=== PATIENT | female | born 1965 | race African-American/Black ===

== ENCOUNTER 2019-01-07 09:10 | Inpatient (IN) | payer BC, OTHER ==
[2019-01-07] MEDS ORDERED: NORMAL SALINE 1000 ML 1,000 ML IV ONE (09:17)
[2019-01-07] MEDS ORDERED: ONDANSETRON HCL INJ/PF 4 MG/2 ML SDV IV ONE (09:17)
--- NOTE | 2019-01-07 09:19 | ER Document Report ---
ED Medical Screen (RME) - General Chief Complaint: Abdominal Pain Stated Complaint: ABDOMINAL PAIN Time Seen by Provider: 01/07/19 09:13 Primary Care Provider: CHRIST WRIGHT [Primary Care Provider] - Follow up as needed Mode of Arrival: Wheelchair Information source: Patient Notes: Patient presents complaining of abdominal pain that woke her up at 1:00 this morning to the left side and epigastric area. Patient reports nausea and vomiting, vomiting about 10 times this morning. Patient states pain does radiate to the left side. Patient denies any fever. hx: Tubal ligation I have greeted and performed a rapid initial assessment of this patient. A comprehensive ED assessment and evaluation of the patient, analysis of test results and completion of the medical decision making process will be conducted by additional ED providers. - Related Data Allergies/Adverse Reactions: No Known Allergies Allergy (Verified 01/07/19 09:15) Physical Exam - Vital signs Vitals: Temp Pulse BP Pulse Ox 98.1 F 66 112/68 100 01/07/19 09:14 01/07/19 09:14 01/07/19 09:14 01/07/19 09:14 - Abdominal Tenderness: Tender - Epigastric, left upper quadrant Notes: Patient actively vomiting in triage Course - Vital Signs Vital signs: Temp Pulse Resp BP Pulse Ox 98.1 F 66 112/68 100 01/07/19 09:14 01/07/19 09:14 01/07/19 09:14 01/07/19 09:14 Doctor's Discharge - Discharge Referrals: CHRIST WRIGHT [Primary Care Provider] - Follow up as needed
[2019-01-07] MEDS ORDERED: FAMOTIDINE INJ/PF 20 MG/2 ML SDV IV ONE (09:36)
[2019-01-07 09:42] LABS: ABSOLUTE BASOPHILS # (AUTO) 0.1 10^3/uL (0.0-0.2); ABSOLUTE MONOCYTES (AUTO) 0.6 10^3/uL (0.1-1.4); ABSOLUTE NEUT (AUTO) 12.3 10^3/uL (1.7-8.2); BASOPHILS % (AUTO) 0.5 % (0-2); HEMATOCRIT 41.9 % (36.0-47.0); HEMOGLOBIN 14.4 g/dL (12.0-15.5); LYMPHOCYTES % (AUTO) 7.2 % (13-45); MEAN CORPUSCULAR HEMOGLOBIN 29.8 pg (27.0-33.4); MEAN CORPUSCULAR HGB CONC 34.3 g/dL (32.0-36.0); MEAN CORPUSCULAR VOLUME 87 fl (80-97); MONOCYTES % (AUTO) 4.4 % (3-13); PLATELET COUNT 175 10^3/uL (150-450); RED BLOOD COUNT 4.82 10^6/uL (3.72-5.28); RED CELL DISTRIBUTION WIDTH 12.2 % (11.5-14.0); SEGMENTED NEUTROPHILS % (AUTO) 87.9 % (42-78); TOTAL CELLS COUNTED % (AUTO) 100 %; WHITE BLOOD COUNT 13.9 10^3/uL (4.0-10.5)
[2019-01-07] MEDS ORDERED: MORPHINE SULFATE 10 MG/ML INJ IV ONE (09:50)
--- NOTE | 2019-01-07 09:52 | ER Document Report ---
ED General - General Chief Complaint: Abdominal Pain Stated Complaint: ABDOMINAL PAIN Time Seen by Provider: 01/07/19 09:13 Primary Care Provider: CHRIST WRIGHT [Primary Care Provider] - Follow up as needed Mode of Arrival: Wheelchair - HPI Notes: Patient is a 53-year-old female that presents to the emergency department for chief complaint of abdominal pain. Patient states she was woken from sleep this morning with acute onset of epigastric and left upper quadrant abdominal pain. She describes it as sharp and constant. She has had continuous nausea with multiple episodes of nonbloody nonbilious emesis. Patient denies any fever chills diarrhea or constipation issues. She denies history of abdominal surgeries in the past. She states she has never had abdominal pain similar to this before. She denies any relieving factors to her pain and has not taken any [id number] medications. Her pain is worse with palpation and movement. Past Medical History: Reviewed in chart Past Surgical History: Reviewed in chart Social History: Reviewed in chart Family History: Reviewed and noncontributory for presenting illness Allergies: Reviewed, see documented allergy list. REVIEW OF SYSTEMS: CONSTITUTIONAL : No fever No chills No diaphoresis No recent illness EENT: No vision changes No congestion No sore throat CARDIOVASCULAR: No chest pain No palpitations RESPIRATORY: No shortness of breath No cough No difficulty breathing GASTROINTESTINAL: abdominal pain nausea vomiting No diarrhea GENITOURINARY: No dysuria No hematuria No difficulty urinating MUSCULOSKELETAL: No back pain No leg pain No arm pain SKIN: No rashes No lesions LYMPHATIC: No swollen, enlarged glands. NEUROLOGICAL: No lightheadedness No headache No weakness No paresthesias PSYCHIATRIC: No anxiety No depression PHYSICAL EXAMINATION: Vital signs reviewed, nursing noted reviewed. GENERAL: Appears to be in pain, well-nourished and in no acute distress. HEAD: Atraumatic, normocephalic. EYES: Eyes appear normal, extraocular movements intact, sclera anicteric, conjunctiva are normal. ENT: nares patent, oropharynx clear without exudates. Moist mucous membranes. NECK: Normal range of motion, supple without lymphadenopathy LUNGS: Breath sounds clear to auscultation bilaterally and equal. No wheezes rales or rhonchi. HEART: Regular rate and rhythm without murmurs ABDOMEN: Soft, epigastric and left upper quadrant tenderness, negative Viera sign, no McBurney's point tenderness, normoactive bowel sounds. No rebound, guarding, or rigidity. No masses appreciated. EXTREMITIES: Nontender, good range of motion, no pitting or edema. NEUROLOGICAL: No focal neurological deficits. Moves all extremities spontaneously Motor and sensory grossly intact on exam. PSYCH: Normal mood, normal affect. SKIN: Warm, Dry, normal turgor, no rashes or lesions noted on exposed skin - Related Data Allergies/Adverse Reactions: No Known Allergies Allergy (Verified 01/07/19 09:15) Past Medical History - General Information source: Patient - Social History Smoking Status: Never Smoker Family History: Reviewed & Not Pertinent Patient has suicidal ideation: No Patient has homicidal ideation: No Physical Exam - Vital signs Vitals: Temp Pulse BP Pulse Ox 98.1 F 66 112/68 100 01/07/19 09:14 01/07/19 09:14 01/07/19 09:14 01/07/19 09:14 Course - Re-evaluation Re-evalutation: 01/07/19 11:31 Vitals reviewed. Nursing notes reviewed. Patient given IV fluids, Zofran, Pepcid and morphine for symptomatic management. She does have significant tenderness on exam and CT scan shows a wandering spleen with likely splenic torsion. This finding was discussed with Dr. Louis who will see her on consult and admit for likely splenectomy. The remainder of her blood work is unremarkable. Patient states her pain has improved since receiving the morphine and currently is tolerable. She was made n.p.o. Patient given a dose of Unasyn in the ED per Dr. Louis's request. Laboratory 01/07/19 01/07/19 01/07/19 09:20 09:20 09:20 WBC 13.9 H RBC 4.82 Hgb 14.4 Hct 41.9 MCV 87 MCH 29.8 MCHC 34.3 RDW 12.2 Plt Count 175 Lymph % (Auto) 7.2 L [place] % (Auto) 4.4 Eos % (Auto) 0.0 Baso % (Auto) 0.5 Absolute Neuts (auto) 12.3 H Absolute Lymphs (auto) 1.0 Absolute Monos (auto) 0.6 Absolute Eos (auto) 0.0 Absolute Basos (auto) 0.1 Seg Neutrophils % 87.9 H Sodium 138.7 Potassium 4.5 Chloride 99 Carbon Dioxide 31 H Anion Gap 9 BUN 8 Creatinine 0.82 Est GFR ( Amer) > 60 Est GFR (MDRD) Non-Af > 60 Glucose 198 H Calcium 9.7 Total Bilirubin 0.4 Direct Bilirubin 0.1 Neonat Total Bilirubin Not Reportable Neonat Direct Bilirubin Not Reportable Neonat Indirect Bili Not Reportable AST 27 ALT 27 Alkaline Phosphatase 88 Total Protein 7.8 Albumin 4.5 Lipase 76.2 Serum HCG, Qual NEGATIVE Urine Color Urine Appearance Urine pH Ur Specific [place] Urine Protein Urine Glucose (UA) Urine Ketones Urine Blood Urine Nitrite Urine Bilirubin Urine Urobilinogen Ur Leukocyte Esterase Urine WBC (Auto) Urine RBC (Auto) Squamous Epi Cells Auto Urine Mucus (Auto) Urine Ascorbic Acid 01/07/19 10:00 WBC RBC Hgb Hct MCV MCH MCHC RDW Plt Count Lymph % (Auto) [place] % (Auto) Eos % (Auto) Baso % (Auto) Absolute Neuts (auto) Absolute Lymphs (auto) Absolute Monos (auto) Absolute Eos (auto) Absolute Basos (auto) Seg Neutrophils % Sodium Potassium Chloride Carbon Dioxide Anion Gap BUN Creatinine Est GFR ( Amer) Est GFR (MDRD) Non-Af Glucose Calcium Total Bilirubin Direct Bilirubin Neonat Total Bilirubin Neonat Direct Bilirubin Neonat Indirect Bili AST ALT Alkaline Phosphatase Total Protein Albumin Lipase Serum HCG, Qual Urine Color YELLOW Urine Appearance CLEAR Urine pH 7.0 Ur Specific [place] 1.023 Urine Protein NEGATIVE Urine Glucose (UA) 150 H Urine Ketones TRACE H Urine Blood NEGATIVE Urine Nitrite NEGATIVE Urine Bilirubin NEGATIVE Urine Urobilinogen NEGATIVE Ur Leukocyte Esterase NEGATIVE Urine WBC (Auto) 2 Urine RBC (Auto) 2 Squamous Epi Cells Auto 1 Urine Mucus (Auto) RARE Urine Ascorbic Acid 20 H Abdomen/Pelvis CT 01/07/19 10:00 IMPRESSION: 1. The spleen is inferiorly displaced from the left upper quadrant with a swirl sign of the splenic vessels and fat stranding of the splenic hilum (series 601, image 33, series 3, image 34). Findings are consistent with a "wandering spleen" and the presence of swirling vessels and fat stranding are concerning for splenic torsion in the setting of acute abdominal pain. This is a very uncommon although reported complication of wandering spleen and cause of acute abdominal pain. The spleen is normal in size. 2. Small volume nonspecific free fluid in the low abdomen and pelvis. 01/07/19 12:57 She will be taken from the emergency room to the OR for splenectomy - Vital Signs Vital signs: Temp Pulse Resp BP Pulse Ox 98.1 F 66 112/68 100 01/07/19 09:14 01/07/19 09:14 01/07/19 09:14 01/07/19 09:14 - Laboratory Result Diagrams: 01/07/19 09:20 01/07/19 09:20 Laboratory results interpreted by me: 01/07/19 01/07/19 01/07/19 09:20 09:20 10:00 WBC 13.9 H Lymph % (Auto) 7.2 L Absolute Neuts (auto) 12.3 H Seg Neutrophils % 87.9 H Carbon Dioxide 31 H Glucose 198 H Urine Glucose (UA) 150 H Urine Ketones TRACE H Urine Ascorbic Acid 20 H - Diagnostic Test Radiology reviewed: Image reviewed, Reports reviewed Critical Care Note - Critical Care Note Total time excluding time spent on procedures (mins): 35 Comments: Critical care time 35 exclusive from separate billable procedures for a patient requiring complex medical decision making, and high potential for clinical deterioration. Time spent obtaining history from patient or surrogate, discussions with consultants, development of treatment plan with patient or surrogate, evaluation of patient's response to treatment, examination of patient, ordering and performing treatments and interventions, ordering and review of laboratory studies, re-evaluation of patient's condition, ordering and review of radiographic studies and review of old charts Discharge - Discharge Clinical Impression: Splenic torsion, Abdominal pain, LUQ Condition: Stable Disposition: ADMITTED INPATIENT Admitting Provider: Surgicalist Unit Admitted: OR Referrals: LOCALMD,NO [Primary Care Provider] - Follow up as needed
[2019-01-07 10:04] LABS: ALBUMIN 4.5 g/dL (3.5-5.0); ALKALINE PHOSPHATASE 88 U/L (38-126); ANION GAP 9 (5-19); ASPARTATE AMINO TRANSFERASE 27 U/L (14-36); BILIRUBIN,DIRECT 0.1 mg/dL (0.0-0.4); BILIRUBIN,TOTAL 0.4 mg/dL (0.2-1.3); BLOOD UREA NITROGEN 8 mg/dL (7-20); CALCIUM 9.7 mg/dL (8.4-10.2); CARBON DIOXIDE 31 mmol/L (22-30); CHLORIDE 99 mmol/L (98-107); GLUCOSE 198 mg/dL (75-110); POTASSIUM 4.5 mmol/L (3.6-5.0); TOTAL PROTEIN 7.8 g/dL (6.3-8.2)
[2019-01-07 10:19] LABS: APPEARANCE,URINE CLEAR; BILIRUBIN,URINE NEGATIVE (NEGATIVE); COLOR,URINE YELLOW; GLUCOSE, URINE 150 mg/dL (NEGATIVE); KETONES,URINE TRACE mg/dL (NEGATIVE); LEUKOCYTE ESTERASE,URINE NEGATIVE (NEGATIVE); NITRITE,URINE NEGATIVE (NEGATIVE); PROTEIN,URINE NEGATIVE (NEGATIVE); URINE SPECIFIC GRAVITY 1.023; UROBILINOGEN,URINE NEGATIVE mg/dL (<2.0)
[2019-01-07] MEDS ORDERED: NEOSTIGMINE METHYLSULFATE 10 MG/10 ML VIAL ONE (10:55)
[2019-01-07] MEDS ORDERED: LIDOCAINE 2% INJ-PF (20 MG/ML) 2 ML AMPUL ONE (10:55)
[2019-01-07] MEDS ORDERED: GLYCOPYRROLATE 1 MG/5 ML VIAL ONE (10:55)
[2019-01-07] MEDS ORDERED: ROCURONIUM BROMIDE INJ 50 MG/5 ML VIAL IV ONE (10:55)
[2019-01-07] MEDS ORDERED: METOCLOPRAMIDE HCL INJ/PF 10 MG/2 ML SDV ONE (10:55)
--- NOTE | 2019-01-07 11:12 | RADIOLOGY REPORT (SQ) ---
EXAM DESCRIPTION: CT ABD/PELVIS WITH IV ONLY COMPLETED DATE/TIME: 01/07/2019 10:54 am REASON FOR STUDY: abdominal pain COMPARISON: None. TECHNIQUE: CT scan of the abdomen and pelvis performed using helical scanning technique with dynamic intravenous contrast injection. No oral contrast. Images reviewed with lung, soft tissue, and bone windows. Reconstructed coronal and sagittal MPR images reviewed. Delayed images for evaluation of the urinary system also acquired. All images stored on PACS. All CT scanners at this facility use dose modulation, iterative reconstruction, and/or weight based d osing when appropriate to reduce radiation dose to as low as reasonably achievable (ALARA). [facility]: Dose Right [facility]: CareDose [facility]: Dose Right [facility]: Teradose 4D [facility]: [employer] CONTRAST TYPE AND DOSE: contrast/concentration: Isovue 350.00 mg/ml; Total Contrast Delivered: 85.0 ml; Total Saline Delivered: 65.0 ml RENAL FUNCTION: GFR > 60. RADIATION DOSE: CT Rad equipment meets quality standard of care and radiation dose reduction techniq ues were employed. CTDIvol: NaN - NaN mGy. DLP: 0 mGy-cm.. LIMITATIONS: None. FINDINGS: LOWER CHEST: No significant findings. No nodules or infiltrates. LIVER: Normal size. No masses. No dilated ducts. SPLEEN: The spleen is inferiorly displaced from the left upper quadrant with a swirl sign of the sple alice vessels and fat stranding of the splenic hilum (series 601, image 33, series 3, image 34). The s pleen is normal in size. PANCREAS: No masses. No significant calcifications. No adjacent inflammation or peripancreatic fluid collections. Pancreatic duct not dilated. GALLBLADDER: No identified stones by CT criteria. No inflammatory changes to suggest cholecystitis. ADRENAL GLANDS: No significant masses or asymmetry. RIGHT KIDNEY AND URETER: No solid masses. No significant calcifications. No hydronephrosis or hyd roureter. LEFT KIDNEY AND URETER: No solid masses. No significant calcifications. No hydronephrosis or hydr oureter. AORTA AND VESSELS: No aneurysm. No dissection. Renal arteries, SMA, celiac without stenosis. RETROPERITONEUM: No retroperitoneal adenopathy, hemorrhage or masses. BOWEL AND PERITONEAL CAVITY: No masses or inflammatory changes. Small volume free fluid in the low a bdomen and pelvis. APPENDIX: Not clearly visualized. PELVIS: No mass. Small volume free fluid in the low pelvis. Normal bladder. ABDOMINAL WALL: No masses. No hernias. BONES: No significant or acute findings. OTHER: No other significant finding. IMPRESSION: 1. The spleen is inferiorly displaced from the left upper quadrant with a swirl sign of the splenic vessels and fat stranding of the splenic hilum (series 601, image 33, series 3, image 34) . Findings are consistent with a "wandering spleen" and the presence of swirling vessels and fat st randing are concerning for splenic torsion in the setting of acute abdominal pain. This is a very un common although reported complication of wandering spleen and cause of acute abdominal pain. The spl een is normal in size. 2. Small volume nonspecific free fluid in the low abdomen and pelvis. TECHNICAL DOCUMENTATION: JOB ID: [id number] Quality ID # [id number]: Final reports with documentation of one or more dose reduction techniques (e.g., Au tomated exposure control, adjustment of the mA and/or kV according to patient size, use of iterative reconstruction technique) 2010 [employer]- All Rights Reserved Reading location - IP/workstation name: [email or web address]
[2019-01-07] MEDS ORDERED: AMPICILLIN SOD/SULBACTAM 3 GM VIAL IV ONE (11:25)
[2019-01-07] MEDS ORDERED: FENTANYL CITRATE INJ/PF 100 MCG/2 ML AMPUL ONE (13:30)
[2019-01-07] MEDS ORDERED: HYDROMORPHONE HCL INJ/PF 2 MG/ML AMPULE ONE (13:31)
[2019-01-07] MEDS ORDERED: EPHEDRINE SULFATE INJ 50 MG/1 ML AMPULE ONE (13:31)
[2019-01-07] MEDS ORDERED: PROPOFOL INJ 200 MG/20 ML VIAL IV ONE (13:31)
[2019-01-07] MEDS ORDERED: MIDAZOLAM 2 MG/2 ML INJ ONE (13:31)
--- NOTE | 2019-01-07 14:02 | PDOC H&P ---
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 Went to Ed where a CT scan of abdomen showed torsion of spleen.Denies fever or chills. Past Medical History Medical History: None Past Surgical History Past Surgical History: Reports: None Social History Smoking Status: Never Smoker Family History Family History: Reviewed & Not Pertinent Parental Family History Reviewed: Yes - mother diabetic Children Family History Reviewed: No Sibling(s) Family History Reviewed.: No Medication/Allergy Home Medications: Multivitamin [Multiple Vitamins] 1 tab PO DAILY 01/07/19 Allergies/Adverse Reactions: No Known Allergies Allergy (Verified 01/07/19 09:15) Review of Systems Constitutional: PRESENT: as per HPI Gastrointestinal: PRESENT: abdominal pain, nausea Physical Exam Vital Signs: Temp Pulse Resp BP Pulse Ox 98.1 F 66 112/68 100 01/07/19 09:14 01/07/19 09:14 01/07/19 09:14 01/07/19 09:14 Intake & Output 01/06/19 01/07/19 01/08/19 06:59 06:59 06:59 Intake Total 1000 Balance 1000 Weight 74.3 kg General appearance: PRESENT: severe distress Head exam: PRESENT: atraumatic Eye exam: PRESENT: conjunctiva pink Mouth exam: PRESENT: moist Neck exam: PRESENT: full ROM Respiratory exam: PRESENT: clear to auscultation yvonne Cardiovascular exam: PRESENT: RRR Pulses: PRESENT: normal radial pulses Vascular exam: PRESENT: normal capillary refill GI/Abdominal exam: PRESENT: soft, tenderness - LUQ worse at left para umbilical area Rectal exam: PRESENT: deferred Extremities exam: PRESENT: full ROM Musculoskeletal exam: PRESENT: full ROM Neurological exam: PRESENT: alert, oriented to person, oriented to place, oriented to time, oriented to situation Psychiatric exam: PRESENT: appropriate affect Skin exam: PRESENT: normal color, warm Results Laboratory Results: 01/07/19 09:20 01/07/19 09:20 01/07/19 01/07/19 01/07/19 09:20 09:20 09:20 WBC 13.9 H RBC 4.82 Hgb 14.4 Hct 41.9 MCV 87 MCH 29.8 MCHC 34.3 RDW 12.2 Plt Count 175 Seg Neutrophils % 87.9 H Sodium 138.7 Potassium 4.5 Chloride 99 Carbon Dioxide 31 H Anion Gap 9 BUN 8 Creatinine 0.82 Est GFR ( Amer) > 60 Glucose 198 H Calcium 9.7 Total Bilirubin 0.4 AST 27 Alkaline Phosphatase 88 Total Protein 7.8 Albumin 4.5 Lipase 76.2 Serum HCG, Qual NEGATIVE Urine Color Urine Appearance Urine pH Ur Specific [place] Urine Protein Urine Glucose (UA) Urine Ketones Urine Blood Urine Nitrite Ur Leukocyte Esterase Urine WBC (Auto) Urine RBC (Auto) Blood Type Antibody Screen 01/07/19 01/07/19 10:00 11:52 WBC RBC Hgb Hct MCV MCH MCHC RDW Plt Count Seg Neutrophils % Sodium Potassium Chloride Carbon Dioxide Anion Gap BUN Creatinine Est GFR ( Amer) Glucose Calcium Total Bilirubin AST Alkaline Phosphatase Total Protein Albumin Lipase Serum HCG, Qual Urine Color YELLOW Urine Appearance CLEAR Urine pH 7.0 Ur Specific [place] 1.023 Urine Protein NEGATIVE Urine Glucose (UA) 150 H Urine Ketones TRACE H Urine Blood NEGATIVE Urine Nitrite NEGATIVE Ur Leukocyte Esterase NEGATIVE Urine WBC (Auto) 2 Urine RBC (Auto) 2 Blood Type B POSITIVE Antibody Screen NEGATIVE Impressions: Abdomen/Pelvis CT 01/07/19 10:00 IMPRESSION: 1. The spleen is inferiorly displaced from the left upper quadrant with a swirl sign of the splenic vessels and fat stranding of the splenic hilum (series 601, image 33, series 3, image 34). Findings are consistent with a "wandering spleen" and the presence of swirling vessels and fat stranding are concerning for splenic torsion in the setting of acute abdominal pain. This is a very uncommon although reported complication of wandering spleen and cause of acute abdominal pain. The spleen is normal in size. 2. Small volume nonspecific free fluid in the low abdomen and pelvis. Assessment & Plan - Diagnosis (1) Abdominal pain, LUQ Is this a current diagnosis for this admission?: Yes (2) Splenic torsion Is this a current diagnosis for this admission?: Yes - Time Time Spent: 30 to 50 Minutes - Inpatient Certification Medical Necessity: Need for IV Antibiotics, Need for Surgery - Plan Summary Plan Summary: For exploratory,splenectomy
[2019-01-07 14:11] LABS: INTERNATIONAL RATION (INR) 1.06; PROTHROMBIN TIME 13.8 SEC (11.4-15.4)
[2019-01-07] MEDS ORDERED: DIPHENHYDRAMINE HCL 50 MG/ML VIAL IV PRN (15:22)
[2019-01-07] MEDS ORDERED: ONDANSETRON HCL INJ/PF 4 MG/2 ML SDV IV PRN (15:22)
[2019-01-07] MEDS ORDERED: MEPERIDINE HCL/PF INJ 25 MG/1 ML DISP.SYRIN IV PRN (15:22)
[2019-01-07] MEDS ORDERED: MORPHINE SULFATE 10 MG/ML INJ IV PRN ×2 (15:22→18:53)
[2019-01-07] MEDS ORDERED: PROMETHAZINE HCL INJ 25 MG/1 ML VIAL IV PRN ×2 (15:22)
[2019-01-07] MEDS ORDERED: OXYCODONE-ACETAMINOPHEN 5-325 MG TABLET PO PRN ×2 (15:22)
[2019-01-07] MEDS ORDERED: FENTANYL CITRATE INJ/PF 100 MCG/2 ML AMPUL IV PRN ×3 (15:22)
[2019-01-07] MEDS ORDERED: BUPIVACAINE INJ/PF LIPOSOME/PF 266 MG/20 ML SDV ONE (15:26)
--- NOTE | 2019-01-07 16:25 | Operative Report ---
Operative Report DATE OF SURGERY: 01/07/19 PREOPERATIVE DIAGNOSIS: Torsion of the spleen POSTOPERATIVE DIAGNOSIS: Same OPERATION: Splenectomy SURGEON: TONG MCINTOSH ANESTHESIA: GA TISSUE REMOVED OR ALTERED: Spleen COMPLICATIONS: None ESTIMATED BLOOD LOSS: 20 cc QUANTITATIVE BLOOD LOSS: 20 INTRAOPERATIVE FINDINGS: Spleen appears to be its normal size but is markedly discolored and firm. No adhesions to its usual sites. Spleen appears to be twisted several times on its long pedicle occluding it is arterial and venous systems PROCEDURE: After adequate general anesthesia patient was placed in supine position and the abdomen prepped and draped in the usual sterile fashion. Appropriate timeout was called. Next a left subcostal incision is made in the fascia divided with the use of cautery. Abdominal cavity was then entered. The spleen was noted to be upside down with the pedicle close to the incision. The spleen was subsequently lifted up into the incision site. The spleen and usually does not have any adhesions to its usual borders and it appears to be free-floating. It appears to be twisted several times on its long pedicle with occlusion of the arterial and venous systems. The spleen was untwisted and arterial and venous systems isolated and each side doubly ligated with 0 Vicryl ties. The pedicle close to the hilum distal to the ligated vessels was subsequently divided with the use of LigaSure. No evidence of bleeding noted. There appears to be some clots on the venous side. The spleen was subsequently passed on from the OR table to be sent for pathology. No obvious abnormality noted along the surrounding structures with the colon noted to be free of any adhesions and noted to be normal. The left the posterior and anterior fascia was then reapproximated separately with running suture using 0 PDS. The incision which was carried to the midline and the midline was then closed with 2 figure of 8 sutures using 0 PDS. Exparel local anesthesia was injected through the fascia and to the surrounding incision site using about 20cc. The skin was then reapproximated using verito. Sterile dressings placed over the operative site. Needle instrument sponge count were all correct and estimated blood loss was about 15 to 20 cc. Patient brought to the recovery room in satisfactory condition extubated.
[2019-01-07] MEDS: AMPICILLIN SODIUM/SULBACTAM NA 3 GM in NORMAL SALINE 100 ML IV SCH (21:39)
[2019-01-07] MEDS: KETOROLAC TROMETHAMINE INJ/PF 30 MG/1 ML SDV IV SCH (23:25)
[2019-01-08] MEDS: DEXTROSE 5%-LACTATED RINGERS 1,000 ML IV PRN ×3 (02:44→23:09)
[2019-01-08] MEDS: AMPICILLIN SODIUM/SULBACTAM NA 3 GM in NORMAL SALINE 100 ML IV SCH ×4 (02:44→20:27)
[2019-01-08 06:26] LABS: HEMATOCRIT 38.3 % (36.0-47.0); MEAN CORPUSCULAR HEMOGLOBIN 29.6 pg (27.0-33.4); MEAN CORPUSCULAR HGB CONC 33.9 g/dL (32.0-36.0); MEAN CORPUSCULAR VOLUME 87 fl (80-97); PLATELET COUNT 169 10^3/uL (150-450); RED BLOOD COUNT 4.39 10^6/uL (3.72-5.28); RED CELL DISTRIBUTION WIDTH 12.6 % (11.5-14.0); WHITE BLOOD COUNT 20.4 10^3/uL (4.0-10.5)
[2019-01-08] MEDS: ENOXAPARIN SODIUM INJ 30 MG/0.3 ML DISP.SYRIN SUBCUT SCH (06:31)
[2019-01-08] MEDS: KETOROLAC TROMETHAMINE INJ/PF 30 MG/1 ML SDV IV SCH ×3 (06:33→17:17)
[2019-01-08 07:04] LABS: ABSOLUTE MONOCYTES # (MANUAL) 1.8 10^3/uL (0.1-1.4); BAND NEUTROPHILS % (MANUAL) 1 % (3-5); BASOPHILS % (MANUAL) 0 % (0-2); EOSINOPHILS % (MANUAL) 0 % (0-6); LYMPHOCYTES % (MANUAL) 9 % (13-45); MONOCYTES % (MANUAL) 9 % (3-13); SEGMENTED NEUTROPHILS % (MAN) 80 % (42-78); TOTAL CELLS COUNTED 100
[2019-01-08 07:05] LABS: PLATELET COMMENT ADEQUATE; RBC MORPHOLOGY COMMENT NORMO-CYTIC/CHROMIC
[2019-01-08 07:34] LABS: ALBUMIN 3.5 g/dL (3.5-5.0); ALKALINE PHOSPHATASE 64 U/L (38-126); ANION GAP 7 (5-19); ASPARTATE AMINO TRANSFERASE 33 U/L (14-36); BILIRUBIN,DIRECT 0.1 mg/dL (0.0-0.4); BILIRUBIN,TOTAL 0.6 mg/dL (0.2-1.3); BLOOD UREA NITROGEN 6 mg/dL (7-20); CALCIUM 8.7 mg/dL (8.4-10.2); CARBON DIOXIDE 31 mmol/L (22-30); CHLORIDE 100 mmol/L (98-107); GLUCOSE 143 mg/dL (75-110); TOTAL PROTEIN 6.6 g/dL (6.3-8.2)
[2019-01-08 07:45] LABS: POTASSIUM 3.5 mmol/L (3.6-5.0)
--- NOTE | 2019-01-08 10:47 | PDOC PROGRESS REPORT ---
Subjective Progress Note for:: 01/08/19 Subjective:: Patient has no complaints; tolerated the operation well; Godinez discontinued and she is voiding. Reason For Visit: SPLEENECTOMY Physical Exam Vital Signs: Temp Pulse Resp BP Pulse Ox 98.4 F 81 16 114/58 L 100 01/08/19 08:35 01/08/19 08:35 01/08/19 08:35 01/08/19 08:35 01/08/19 08:35 Intake & Output 01/07/19 01/08/19 01/09/19 06:59 06:59 06:59 Intake Total 3225 100 Output Total 220 Balance 3005 100 Weight 78.5 kg General appearance: PRESENT: no acute distress GI/Abdominal exam: PRESENT: other - Operative dressing dry and intact; abdomen is completely benign. Results Laboratory Results: 01/08/19 05:35 01/08/19 05:35 01/07/19 01/08/19 01/08/19 11:52 05:35 05:35 WBC 20.4 H RBC 4.39 Hgb 13.0 Hct 38.3 MCV 87 MCH 29.6 MCHC 33.9 RDW 12.6 Plt Count 169 Seg Neutrophils % Not Reportable Sodium 137.8 Potassium 3.5 L D Chloride 100 Carbon Dioxide 31 H Anion Gap 7 BUN 6 L Creatinine 0.83 Est GFR ( Amer) > 60 Glucose 143 H Calcium 8.7 Total Bilirubin 0.6 AST 33 Alkaline Phosphatase 64 Total Protein 6.6 Albumin 3.5 Lipase 27.5 Blood Type B POSITIVE Antibody Screen NEGATIVE Impressions: Abdomen/Pelvis CT 01/07/19 10:00 IMPRESSION: 1. The spleen is inferiorly displaced from the left upper quadrant with a swirl sign of the splenic vessels and fat stranding of the splenic hilum (series 601, image 33, series 3, image 34). Findings are consistent with a "wandering spleen" and the presence of swirling vessels and fat stranding are concerning for splenic torsion in the setting of acute abdominal pain. This is a very uncommon although reported complication of wandering spleen and cause of acute abdominal pain. The spleen is normal in size. 2. Small volume nonspecific free fluid in the low abdomen and pelvis. 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 Recommendations: 1. We will start clear liquids 2. Patient may shower, ambulate 3. Will get availability of pneumococcal and meningococcal vaccines to give patient prior to discharge home. - Time Time Spent with patient: 15-24 minutes
[2019-01-08] MEDS ORDERED: PNEUMOCOCCAL 23-VAL P-SAC VAC 0.5 ML VIAL IM PRN (11:21)
[2019-01-08] MEDS ORDERED: MENINGOCOCCAL VAC A,C,Y,W-135 DIP/PF 0.5 ML VIAL IM PRN (11:25)
[2019-01-09] MEDS: KETOROLAC TROMETHAMINE INJ/PF 30 MG/1 ML SDV IV SCH ×5 (00:24→23:47)
[2019-01-09] MEDS: AMPICILLIN SODIUM/SULBACTAM NA 3 GM in NORMAL SALINE 100 ML IV SCH ×4 (03:05→21:23)
[2019-01-09] MEDS: ENOXAPARIN SODIUM INJ 30 MG/0.3 ML DISP.SYRIN SUBCUT SCH (06:06)
[2019-01-09] MEDS ORDERED: INFLUENZA QUAD (6MOS+) 2019-20 VAC 0.5 ML SYR IM ONE (08:00)
[2019-01-09] MEDS: DEXTROSE 5%-LACTATED RINGERS 1,000 ML IV PRN (08:02)
--- NOTE | 2019-01-09 12:09 | PDOC PROGRESS REPORT ---
Subjective Progress Note for:: 01/09/19 Subjective:: incisional pains + flatus Reason For Visit: SPLEENECTOMY Physical Exam Vital Signs: Temp Pulse Resp BP Pulse Ox 98.8 F 86 20 131/70 H 97 01/09/19 08:29 01/09/19 08:29 01/09/19 08:29 01/09/19 08:29 01/09/19 08:29 Intake & Output 01/08/19 01/09/19 01/10/19 06:59 06:59 06:59 Intake Total 3225 3448 1100 Output Total 1220 Balance 2004 3448 1100 Weight 78.5 kg 78.6 kg Exam: abdomen is soft with mild incisional tenderness Dressing is dry Results Laboratory Results: 01/08/19 05:35 01/08/19 05:35 Impressions: Abdomen/Pelvis CT 01/07/19 10:00 IMPRESSION: 1. The spleen is inferiorly displaced from the left upper quadrant with a swirl sign of the splenic vessels and fat stranding of the splenic hilum (series 601, image 33, series 3, image 34). Findings are consistent with a "wandering spleen" and the presence of swirling vessels and fat stranding are concerning for splenic torsion in the setting of acute abdominal pain. This is a very uncommon although reported complication of wandering spleen and cause of acute abdominal pain. The spleen is normal in size. 2. Small volume nonspecific free fluid in the low abdomen and pelvis. Assessment & Plan - Diagnosis (1) Abdominal pain, LUQ Is this a current diagnosis for this admission?: Yes (2) Splenic torsion Is this a current diagnosis for this admission?: Yes - Time Time Spent with patient: 15-24 minutes - Inpatient Certification Medical Necessity: Need For IV Fluids, Need for Pain Control, Need for IV Antibiotics - Plan Summary Plan Summary: Patient being given Vaccines today prior to discharge today or tomorrow\\ Increase po to full liquids advance to reg diet as tolerated
[2019-01-10] MEDS: AMPICILLIN SODIUM/SULBACTAM NA 3 GM in NORMAL SALINE 100 ML IV SCH ×2 (02:06→08:12)
[2019-01-10] MEDS: ENOXAPARIN SODIUM INJ 30 MG/0.3 ML DISP.SYRIN SUBCUT SCH (05:36)
[2019-01-10] MEDS: KETOROLAC TROMETHAMINE INJ/PF 30 MG/1 ML SDV IV SCH ×2 (05:37→12:19)
[2019-01-10 06:25] LABS: ABSOLUTE BASOPHILS # (AUTO) 0.1 10^3/uL (0.0-0.2); ABSOLUTE EOSINOPHILS # (AUTO) 0.1 10^3/uL (0.0-0.6); ABSOLUTE LYMPHOCYTES (AUTO) 3.1 10^3/uL (0.5-4.7); ABSOLUTE MONOCYTES (AUTO) 1.2 10^3/uL (0.1-1.4); ABSOLUTE NEUT (AUTO) 10.4 10^3/uL (1.7-8.2); BASOPHILS % (AUTO) 0.8 % (0-2); EOSINOPHILS % (AUTO) 0.9 % (0-6); HEMATOCRIT 36.1 % (36.0-47.0); HEMOGLOBIN 12.3 g/dL (12.0-15.5); LYMPHOCYTES % (AUTO) 20.5 % (13-45); MEAN CORPUSCULAR HEMOGLOBIN 29.3 pg (27.0-33.4); MEAN CORPUSCULAR VOLUME 86 fl (80-97); MONOCYTES % (AUTO) 8.2 % (3-13); PLATELET COUNT 250 10^3/uL (150-450); RED BLOOD COUNT 4.18 10^6/uL (3.72-5.28); RED CELL DISTRIBUTION WIDTH 12.1 % (11.5-14.0); SEGMENTED NEUTROPHILS % (AUTO) 69.6 % (42-78); TOTAL CELLS COUNTED % (AUTO) 100 %
--- NOTE | 2019-01-10 12:32 | PDOC DISCHARGE SUMMARY ---
General - Admit/Disc Date/PCP Admission Date/Primary Care Provider: 01/07/19 13:45 SURGICAL SURGICALIST Discharge Date: 01/10/19 - Discharge Diagnosis Final Diagnosis: Torsion of spleen - Assessment Summary: Sudden complaint of severe left sided abdominal pains nausea and vomiting on the day of admission. Patient had a CAT scan of the abdomen which showed torsion of the spleen. Patient made immediately taken to the OR for a splenectomy for torsion of the spleen. Underwent surgery done by Dr. Louis on 01/07/2019. Postoperatively patient did very well and given IV Unasyn prophylactically and also postop given vaccinations for anti-bacterial specifically for splenectomy patient. She will be followed in the surgical clinic in about 10 days for removal of verito. Advised him to do any lifting more than 10 to 15 pounds for the next 4weeks. - Additional Information Resuscitation Status: Full Code Discharge Diet: Regular Discharge Activity: Activity As Tolerated, No Lifting Over 10 Pounds, No Lifting/Push/Pulling Referrals: [facility] [Provider Group] - 01/21/19 9:45 am () Home Medications: Multivitamin [Multiple Vitamins] 1 tab PO DAILY 01/07/19 Hospital Course Hospital Course: C/O sudden LUQ pains associated with nausea and immediately went to ED where a CT scan showed torsion of spleen. Taken right away to OR and underwent open splenectomy by Dr Louis on 01/07/19. postoperatively did very well and given all vaccines for splenectomy patients and discharged improved on 01/10/19. Physical Exam Vital Signs: Temp Pulse Resp BP Pulse Ox 98.6 F 86 15 136/71 H 100 01/10/19 08:00 01/10/19 08:00 01/10/19 08:00 01/10/19 08:00 01/10/19 08:00 Intake & Output 01/09/19 01/10/19 01/11/19 06:59 06:59 06:59 Intake Total 3448 2908 Balance 3448 2908 Weight 78.6 kg 77.8 kg Exam: enderness RUQ to the right para-umbilical site Results Laboratory Results: WBC 15.0 10^3/uL (4.0-10.5) H 01/10/19 05:54 RBC 4.18 10^6/uL (3.72-5.28) 01/10/19 05:54 Hgb 12.3 g/dL (12.0-15.5) 01/10/19 05:54 Hct 36.1 % (36.0-47.0) 01/10/19 05:54 MCV 86 fl (80-97) 01/10/19 05:54 MCH 29.3 pg (27.0-33.4) 01/10/19 05:54 MCHC 34.0 g/dL (32.0-36.0) 01/10/19 05:54 RDW 12.1 % (11.5-14.0) 01/10/19 05:54 Plt Count 250 10^3/uL (150-450) 01/10/19 05:54 Lymph % (Auto) 20.5 % (13-45) 01/10/19 05:54 [place] % (Auto) 8.2 % (3-13) 01/10/19 05:54 Eos % (Auto) 0.9 % (0-6) 01/10/19 05:54 Baso % (Auto) 0.8 % (0-2) 01/10/19 05:54 Absolute Neuts (auto) 10.4 10^3/uL (1.7-8.2) H 01/10/19 05:54 Absolute Lymphs (auto) 3.1 10^3/uL (0.5-4.7) 01/10/19 05:54 Absolute Monos (auto) 1.2 10^3/uL (0.1-1.4) 01/10/19 05:54 Absolute Eos (auto) 0.1 10^3/uL (0.0-0.6) 01/10/19 05:54 Absolute Basos (auto) 0.1 10^3/uL (0.0-0.2) 01/10/19 05:54 Total Counted 100 01/08/19 05:35 Seg Neutrophils % 69.6 % (42-78) 01/10/19 05:54 Seg Neuts % (Manual) 80 % (42-78) H 01/08/19 05:35 Band Neutrophils % 1 % (3-5) L 01/08/19 05:35 Lymphocytes % (Manual) 9 % (13-45) L 01/08/19 05:35 Atypical Lymphs % 1 % (0) 01/08/19 05:35 Monocytes % (Manual) 9 % (3-13) 01/08/19 05:35 Eosinophils % (Manual) 0 % (0-6) 01/08/19 05:35 Basophils % (Manual) 0 % (0-2) 01/08/19 05:35 Abs Neuts (Manual) 16.5 10^3/uL (1.7-8.2) H 01/08/19 05:35 Abs Lymphs (Manual) 2.0 10^3/uL (0.5-4.7) 01/08/19 05:35 Abs Monocytes (Manual) 1.8 10^3/uL (0.1-1.4) H 01/08/19 05:35 Absolute Eos (Manual) 0.0 10^3/uL (0.0-0.6) 01/08/19 05:35 Abs Basophils (Manual) 0.0 10^3/uL (0.0-0.2) 01/08/19 05:35 Platelet Comment ADEQUATE 01/08/19 05:35 RBC Morph Comment NORMO-CYTIC/CHROMIC 01/08/19 05:35 PT 13.8 SEC (11.4-15.4) 01/07/19 09:20 INR 1.06 01/07/19 09:20 Sodium 137.8 mmol/L (137-145) 01/08/19 05:35 Potassium 3.5 mmol/L (3.6-5.0) L D 01/08/19 05:35 Chloride 100 mmol/L (98-107) 01/08/19 05:35 Carbon Dioxide 31 mmol/L (22-30) H 01/08/19 05:35 Anion Gap 7 (5-19) 01/08/19 05:35 BUN 6 mg/dL (7-20) L 01/08/19 05:35 Creatinine 0.83 mg/dL (0.52-1.25) 01/08/19 05:35 Est GFR ( Amer) > 60 (>60) 01/08/19 05:35 Est GFR (MDRD) Non-Af > 60 (>60) 01/08/19 05:35 Glucose 143 mg/dL (75-110) H 01/08/19 05:35 Calcium 8.7 mg/dL (8.4-10.2) 01/08/19 05:35 Total Bilirubin 0.6 mg/dL (0.2-1.3) 01/08/19 05:35 Direct Bilirubin 0.1 mg/dL (0.0-0.4) 01/08/19 05:35 Neonat Total Bilirubin Not Reportable 01/08/19 05:35 Neonat Direct Bilirubin Not Reportable 01/08/19 05:35 Neonat Indirect Bili Not Reportable 01/08/19 05:35 AST 33 U/L (14-36) 01/08/19 05:35 ALT 22 U/L (<35) 01/08/19 05:35 Alkaline Phosphatase 64 U/L (38-126) 01/08/19 05:35 Total Protein 6.6 g/dL (6.3-8.2) 01/08/19 05:35 Albumin 3.5 g/dL (3.5-5.0) 01/08/19 05:35 Lipase 27.5 U/L (23-300) 01/08/19 05:35 Serum HCG, Qual NEGATIVE (NEGATIVE) 01/07/19 09:20 Urine Color YELLOW 01/07/19 10:00 Urine Appearance CLEAR 01/07/19 10:00 Urine pH 7.0 (5.0-9.0) 01/07/19 10:00 Ur Specific [place] 1.023 01/07/19 10:00 Urine Protein NEGATIVE mg/dL (NEGATIVE) 01/07/19 10:00 Urine Glucose (UA) 150 mg/dL (NEGATIVE) H 01/07/19 10:00 Urine Ketones TRACE mg/dL (NEGATIVE) H 01/07/19 10:00 Urine Blood NEGATIVE (NEGATIVE) 01/07/19 10:00 Urine Nitrite NEGATIVE (NEGATIVE) 01/07/19 10:00 Urine Bilirubin NEGATIVE (NEGATIVE) 01/07/19 10:00 Urine Urobilinogen NEGATIVE mg/dL (<2.0) 01/07/19 10:00 Ur Leukocyte Esterase NEGATIVE (NEGATIVE) 01/07/19 10:00 Urine WBC (Auto) 2 /HPF 01/07/19 10:00 Urine RBC (Auto) 2 /HPF 01/07/19 10:00 Squamous Epi Cells Auto 1 /HPF 01/07/19 10:00 Urine Mucus (Auto) RARE /LPF 01/07/19 10:00 Urine Ascorbic Acid 20 (NEGATIVE) H 01/07/19 10:00 Blood Type B POSITIVE 01/07/19 11:52 Antibody Screen NEGATIVE 01/07/19 11:52 Impressions: Abdomen/Pelvis CT 01/07/19 10:00 IMPRESSION: 1. The spleen is inferiorly displaced from the left upper quadrant with a swirl sign of the splenic vessels and fat stranding of the splenic hilum (series 601, image 33, series 3, image 34). Findings are consistent with a "wandering spleen" and the presence of swirling vessels and fat stranding are concerning for splenic torsion in the setting of acute abdominal pain. This is a very uncommon although reported complication of wandering spleen and cause of acute abdominal pain. The spleen is normal in size. 2. Small volume nonspecific free fluid in the low abdomen and pelvis. Plan Health Concerns: Given vaccinations required Plan of Treatment: No Lifting > 10 lbs F/U surgical clinic in 2 weeks for removal of verito Goals: Make sure incision heals well and patient should always have appropriate vaccinations Time Spent: Less than 30 Minutes
[2019-01-10 13:22] VITALS: BP 136/71
== END 2019-01-10 14:05 | disposition home or self-care (01) | DRG 801 ==
LOC: ER 09:10 → EH 13:45 → 5 18:01
PROVIDERS: ATTEND Surgery
PROC: 07TP0ZZ Resection of Spleen, Open Approach (ICD-10-PCS; principal; 2019-01-07 14:00)
PROC: 3E0234Z Introduction of Serum, Toxoid and Vaccine into Muscle, Percutaneous Approach (ICD-10-PCS; 2019-01-08)
PROC: 3E02340 Introduction of Influenza Vaccine into Muscle, Percutaneous Approach (ICD-10-PCS; 2019-01-08)
DX: D73.5 Infarction of spleen (principal); Z83.3 Family history of diabetes mellitus; Z23 Encounter for immunization
CPT/HCPCS: 36415; 74177; 790; 80053; 81001; 83690; 84703; 85025; 85610; 86850; 86900; 86901; 88305; 90471; 90686; 90732; 90734; 96361; 96374; 96375; 99285; C9290; G0009; J0295; J1170; J1885; J2250; J2270; J2405; J2704; J2710; J2765; J3010; J3490; J7030; J7050; J7121; S0028